=== PATIENT | female | born 1970 | race Caucasian/White ===

== ENCOUNTER 2020-08-28 10:42 | Outpatient (REF) | payer OTHER, SELFPAY ==
[2020-08-28 11:54] LABS: Estimated Average Glucose 157 mg/dL; Hemoglobin A1c % 7.1 %
[2020-08-28 12:18] LABS: Alanine Aminotransferase 15 U/L (0-31); Albumin Level 3.9 g/dL (3.5-5.0); Alkaline Phosphatase 100 U/L (39-117); Anion Gap 11 (12-20); Aspartate Amino Transferase 17 U/L (5-31); Bilirubin Total 0.5 mg/dL (0.0-1.0); Blood Urea Nitrogen 14 mg/dL (9-16); Carbon Dioxide 28 mmol/L (22-29); Chloride 104 mmol/L (96-108); Cholesterol 230 mg/dL; Estimated Glomerular Filt Rate > 60; Glucose Fasting 135 mg/dL (60-99); HDL Cholesterol 56 mg/dL; LDL Cholesterol Calculated 141 mg/dl; Potassium 4.2 mmol/l (3.3-5.1); Sodium 139 mmol/L (135-145); Total Protein 6.6 g/dL (6.5-8.0); Triglycerides 166 mg/dL
[2020-08-28 12:37] LABS: TSH reflex Free T4 1.28 mIU/mL (0.32-4.0)
[2020-08-28 12:41] LABS: Rheumatoid Factor < 15.0 IU/mL (<15.0)
== END 2020-08-28 10:43 | disposition home or self-care (01) ==
LOC: HO.LAB 10:42
PROVIDERS: PCP Internal Medicine; Visit Provider Nurse Practitioner Family
DX: Z20.828 Contact with and (suspected) exposure to other viral communicable diseases (principal)
CPT/HCPCS: 80053; 80061; 83036; 84443; 86431; U0003

== ENCOUNTER 2020-10-23 10:11 | Outpatient (REF) | payer OTHER, SELFPAY ==
--- NOTE | ~2020-10-23 | XR_ITS ---
EXAMINATION: BILATERAL KNEES STANDING. LEFT KNEE 2 VIEWS. CLINICAL INFORMATION: Bilateral knee pain. COMPARISON: None TECHNIQUE: AP bilateral knees standing. Left knee 2 views. FINDINGS: AP bilateral knee: There is mild loss of medial and lateral compartment joint space both knees without visible acute fracture, loose bodies or bony erosive changes. The soft tissues are normal. Left knee: There is mild loss of patellofemoral compartment joint space without bony erosive changes. No visible acute fracture or dislocation seen. No soft tissue swelling. XR/XR knee LT 2V IMPRESSION: Mild early degenerative changes tricompartment left knee medial and lateral compartment right knee. No loose bodies or bony erosive changes seen in either knee joints. No abnormal joint effusion left knee.
--- NOTE | ~2020-10-23 | XR_ITS ---
EXAMINATION: BILATERAL KNEES STANDING. LEFT KNEE 2 VIEWS. CLINICAL INFORMATION: Bilateral knee pain. COMPARISON: None TECHNIQUE: AP bilateral knees standing. Left knee 2 views. FINDINGS: AP bilateral knee: There is mild loss of medial and lateral compartment joint space both knees without visible acute fracture, loose bodies or bony erosive changes. The soft tissues are normal. Left knee: There is mild loss of patellofemoral compartment joint space without bony erosive changes. No visible acute fracture or dislocation seen. No soft tissue swelling. XR/XR knee standing BI IMPRESSION: Mild early degenerative changes tricompartment left knee medial and lateral compartment right knee. No loose bodies or bony erosive changes seen in either knee joints. No abnormal joint effusion left knee.
== END 2020-10-23 10:12 | disposition home or self-care (01) ==
LOC: HO.HOSX 10:11
PROVIDERS: Visit Provider Orthopaedic Surgery
DX: M25.561 Pain in right knee (principal); M25.562 Pain in left knee
CPT/HCPCS: 73560; 73565

== ENCOUNTER → 2020-10-24 13:25 | Outpatient (BNVA) | payer OTHER, SELFPAY | PROVIDERS: Visit Provider Orthopaedic Surgery | DX: M25.562 Pain in left knee (principal); M25.561 Pain in right knee ==

== ENCOUNTER 2020-11-05 12:41 | Outpatient (REF) | payer OTHER, SELFPAY ==
--- NOTE | ~2020-11-05 | MR_ITS ---
EXAMINATION: MR KNEE WITHOUT CONTRAST, LEFT CLINICAL INFORMATION: Knee pain. Evaluate medial meniscus. Patient reports pain, weakness. COMPARISON: X-ray 10/24/2020 TECHNIQUE: MRI of the knee without contrast was performed using routine sequences on a high-field scanner. FINDINGS: MENISCI: Medial Meniscus: Intact. Lateral Meniscus: Questionable subtle fraying of the posterior root, with artifact on the sagittal sequence limiting evaluation. Otherwise intact. LIGAMENTS: Cruciate: Intact Collateral: Intact EXTENSOR MECHANISM: Intact. There is edema in the superolateral Hoffa's fat pad which can be seen with patellar tendon-lateral femoral condyle impingement. ARTICULAR CARTILAGE/BONE: No focal cartilage loss in 3 compartments. No suspicious marrow signal changes. No fracture. JOINT FLUID AND BURSAE: No significant joint effusion or Encinas's cyst. Popliteus muscle and tendon are intact. Pes anserine tendons appear unremarkable. MR/MR knee LT wo con IMPRESSION: 1. Limited evaluation of the posterior root of the lateral meniscus due to artifact, with subtle fraying difficult to exclude. The menisci otherwise appear intact without evidence of discrete tear. 2. Edema in the superolateral Hoffa's fat pad can be seen with patellar tendon-lateral femoral condyle impingement. 3. No acute osseous abnormality.
== END 2020-11-05 12:42 | disposition home or self-care (01) ==
LOC: HO.MRI 12:41
PROVIDERS: Visit Provider Orthopaedic Surgery
DX: M23.92 Unspecified internal derangement of left knee (principal); S83.242A Other tear of medial meniscus, current injury, left knee, initial encounter
CPT/HCPCS: 73721

== ENCOUNTER → 2020-12-14 10:18 | Outpatient (BNVA) | payer OTHER, SELFPAY | PROVIDERS: PCP Internal Medicine; Visit Provider Orthopaedic Surgery ==

== ENCOUNTER 2022-09-17 12:16 | Outpatient (REF) | payer OTHER, SELFPAY ==
[2022-09-17 13:49] LABS: Alanine Aminotransferase 15 U/L (0-31); Albumin Level 4.1 g/dL (3.5-5.0); Alkaline Phosphatase 132 U/L (39-117); Anion Gap 10 (12-20); Aspartate Amino Transferase 17 U/L (5-31); Bilirubin Total 0.5 mg/dL (0.0-1.0); Blood Urea Nitrogen 14 mg/dL (9-16); Calcium 9.7 mg/dL (8.4-10.2); Carbon Dioxide 30 mmol/L (22-29); Chloride 104 mmol/L (96-108); Cholesterol 236 mg/dL; Estimated Glomerular Filt Rate > 60; Glucose Fasting 130 mg/dL (60-99); HDL Cholesterol 58 mg/dL; LDL Cholesterol Calculated 154 mg/dl; Potassium 4.4 mmol/L (3.3-5.1); Sodium 140 mmol/L (135-145); Total Protein 6.7 g/dL (6.5-8.0); Triglycerides 120 mg/dL; Uric Acid 5.9 mg/dL (2.4-5.7)
[2022-09-17 14:04] LABS: Vitamin D 25-OH Total 33.2 ng/mL (>30)
[2022-09-17 14:23] LABS: Creatinine Urine 168.85 mg/dL
== END 2022-09-17 12:17 | disposition home or self-care (01) ==
LOC: HO.LAB 12:16
PROVIDERS: PCP Internal Medicine; Visit Provider Internal Medicine
DX: E11.65 Type 2 diabetes mellitus with hyperglycemia (principal); M10.9 Gout, unspecified; E55.9 Vitamin D deficiency, unspecified; E78.5 Hyperlipidemia, unspecified
CPT/HCPCS: 36415; 80053; 80061; 82043; 82306; 84550

== ENCOUNTER 2023-03-25 15:29 | Outpatient (AMB) | payer OTHER, SELFPAY ==
--- NOTE | 2023-03-25 15:30 | A.OFFPC_ITS ---
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 Required: No Accompanied by: Self / Same As Patient Allergies nabumetone Allergy (Unknown, Verified 03/25/23 16:08) inadequate response tramadol Allergy (Unknown, Verified 03/25/23 16:08) headache metformin Adverse Reaction (Intermediate, Uncoded 03/25/23 16:16) abdominal discomfort, diarrhea Medication List - Last Reconciled 03/25/23 by Brandi Baltazar MD bisacodyl (Dulcolax (bisacodyl)) 10 mg (2 x 5 mg) PO ONCE 1 day pioglitazone 45 mg PO DAILY 90 days polyethylene glycol 3350 (Miralax) 238 grams PO ONCE Tobacco use date assessed: 03/25/23 Dental Screening Dental Screen Date: 03/25/23 Did you have a dental visit in the last 12 months?: Yes Did you have a dental problem in the last 6 months where you did not have access to dental care?: No Was dental information given to patient?: Patient has dentist HPI HPI Comments History of Present Illness Details This is a 52-year-old female with diabetes mellitus type 2, chronic GERD, thyroid nodule and morbid obesity that comes today for follow-up on her conditions. A1c not on goal and I will add Trulicity. She is morbidly obese with a BMI of 40.9 and was advised to diet and exercise. Has had chronic GERD for over 5 years that is still present even though she takes omeprazole. I will start her on pantoprazole and refer her to Gastroenterology. Has a thyroid nodule and last ultrasound was over a year ago. Complains of chest pain located in the middle of the chest and associated to left arm numbness and an EKG will be ordered. The chest pain is burning like in quality. [facility] Medical History (Updated 03/25/23 @ 17:03 by Brandi Baltazar MD) Arthritis Back pain Diabetes mellitus Dyslipidemia Encounter for screening laboratory testing for COVID-19 virus Essential hypertension Physical exam Surgical History History of foot surgery History of surgery Previous section Family History Father No problems noted. Mother Diabetes Hypertension Maternal Grandmother Diabetes Social History Housing: House Alcohol intake: current Alcohol intake frequency: a few times a month Alcohol type: beer, wine and hard liquor Patient Tobacco Use Status: Never used Tobacco e-Cigarette/Vaping Use: Never Used Second Hand Smoke Exposure: No service: No Current occupational status: employed Current occupation: Work at home - right Handed Current occupational exposures/hazards: No Cognitive needs: No Hearing needs: No Vision needs: Yes Questionnaire PHQ-9 Over the last 2 weeks, how often have you been bothered by any of the following problems? 1. Little interest or pleasure in doing things: not at all 2. Feeling down, depressed, or hopeless: not at all 3. Trouble falling or staying asleep, or sleeping too much: not at all 4. Feeling tired or having little energy: not at all 5. Poor appetite or overeating: not at all 6. Feeling bad about yourself - or that you are a failure or have let yourself or your family down: not at all 7. Trouble concentrating on things, such as reading the newspaper or watching television: not at all 8. Moving or speaking so slowly that other people could have noticed. Or the opposite - being so fidgety or restless that you have been moving around a lot more than usual: not at all 9. Thoughts that you would be better off or of hurting yourself in some way: not at all Total score: 0 Depression Screening Interpretation: Negative 11745 - PHQ-9 Billing: Yes Source: Developed by Drs. Trace Vazquez, Teetee Holland, Blas Pineda and colleagues, with an educational zackary from [employer]. Thrive Questionnaire Date Thrive assessed: 03/25/23 I am a: Patient What is your living situation today?: I have a steady place to live Within the past 12 months, did the food you bought not last and you didn't have the money to get more?: Never true Within the past 12 months, did you worry whether your food would run out before you got money to buy more?: Never true Do you have trouble paying for medicines?: No Do you have trouble getting transportation to medical appointments?: No Do you have trouble paying your heating and electricity bill?: No Do you have trouble taking care of your child, family member or friend?: No Do you have trouble with day-to-day activities such as bathing, preparing meals, shopping, managing finances, etc.?: No Are you currently unemployed and looking for a job?: No Are you interested in more education?: No Please select the resources that you would like help with: None Currently or been in a relationship where the following occur: no concerns reported AUDIT C Alcohol Use Questionnaire (AUDIT-C) 1. How often do you have a drink containing alcohol?: 2-4 times a month 2. How many drinks containing alcohol do you have on a typical day when you are drinking?: 1 or 2 3. How often do you have six or more drinks on one occasion?: Never Total Score: 2 Score Reviewed/Action Taken: No KATE-7 AMB Questionnaire KATE-7 Date KATE - 7 assessed: 03/25/23 Feeling nervous, anxious, or on edge: 0 = Not at all Not being able to stop or control worryin = Not at all Worrying too much about different things: 0 = Not at all Trouble relaxin = Not at all Being so restless that it is hard to sit still: 0 = Not at all Becoming easily annoyed or irritable: 0 = Not at all Feeling afraid as if something awful might happen: 0 = Not at all Total KATE-7 score (0-4 normal; 5-9 mild; 10-14 moderate; 15-21 severe): 0 Source: Developed by Drs. Trace Vazquez, Teetee Holland, Blas Pineda and colleagues, with an educational zackary from [employer]. KATE-7 Assessment Billing KATE-7 Assessment Tool: KATE-7 Assessment 69081 Review of Systems Const All systems reviewed & are unremarkable except as noted in HPI and below Eyes Reports no additional complaints, Denies change in vision and Denies other visual disturbances Card Denies chest pain at rest, Denies chest pain with activity, Denies edema, Denies irregular heart rhythm, Denies claudication, Denies dyspnea, Denies dyspnea on exertion, Denies orthopnea, Denies paroxysmal nocturnal dyspnea and Denies slow heart rate Resp Denies cough, Denies dyspnea and Denies dyspnea on exertion GI Denies abdominal pain, Denies change in bowel habits, Denies excessive flatus, Denies nausea and Denies vomiting Denies urinary incontinence, Denies urinary hesitancy and Denies urinary urgency Musc Denies abnormal gait, Denies atrophy, Denies deformity and Denies limited range of motion Skin/Breast Denies bleeding lesions, Denies changing lesions and Denies rash Neuro Denies abnormal gait and Denies lack of coordination Physical exam (Primary Care) Vital Signs: Last Vital Signs BP 136/86 03/25/23 15:33 BMI result Body Mass Index 40.8 Tobacco/Smoking Status: Tobacco use Status Tobacco use date assessed 03/25/23 03/25/23 15:42 Patient Tobacco Use Status Never used Tobacco 03/25/23 15:32 e-Cigarette/Vaping Use Never Used 03/25/23 15:32 PHQ-9: PHQ-9 Score PHQ-9: Total score 0 03/25/23 16:10 Depression Screening Interpretation: Negative Thrive Assessment: Date of Thrive Assessment Date Thrive assessed 03/25/23 03/25/23 15:42 Currently or been in a relationship where the following occur: no concerns reported Eyes General: appearance normal, both eyes and all related structures Eyelids: Yes eyelids normal Conjunctivae: conjunctivae normal Neck Neck: Yes normal visual inspection and Yes supple Resp Effort & Inspection: normal respiratory effort Auscultation: clear to auscultation bilaterally Cardio Jugular venous distension: no JVD Rate: regular rate Rhythm: regular rhythm Heart sounds: S1 normal heart sound present and S2 normal heart sound present Extrem General: Yes full ROM Results AMB Hemoglobin A1c AMB Hemoglobin A1c 7.5 % Last Edit by KRISTEN Burnham on 03/25/23 15:5 5 Results Reviewed Results Reviewed: Laboratory Last Values Hgb A1c (Clinic) 7.5 % (4.0-6.0) H 03/25/23 15:54 Assessment and Plan Assessment & Plan (1) Thyroid nodule: Code(s): E04.1 - Nontoxic single thyroid nodule Plan: Ultrasound thyroid ordered (2) Chronic GERD: Code(s): K21.9 - Gastro-esophageal reflux disease without esophagitis Plan: Referred to Gastroenterology. Discontinue omeprazole. Start pantoprazole. 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 Start Trulicity once a week. A1c goal is equal or less than 7%. (4) Morbid obesity with BMI of 40.0-44.9, adult: Code(s): E66.01 - Morbid (severe) obesity due to excess calories; Z68.41 - Body mass index [BMI] 40.0-44.9, adult Plan: Start diet and exercise. BMI goal is less than 30. Orders: Orders US thyroid Today E04.1 - Nontoxic single thyroid nodule ECG 12 lead EKG Today R07.9 - Chest pain, unspecified AMB Hemoglobin A1c Today E11.9 - Type 2 diabetes mellitus without complications Referrals Gastroenterology Referral K21.9 - Gastro-esophageal reflux disease without esophagitis Medications: New dulaglutide (Trulicity) 0.75 mg (0.5 mL) subcut QWEEK 90 days 6.5 mL 1RF E11.9 - Type 2 diabetes mellitus without complications pantoprazole 40 mg PO DAILY 90 days 90 tabs 0RF Coding Level of Care Code Est Pt Level 4 (56055) Diagnoses Thyroid nodule E04.1 Chronic GERD K21.9 Diabetes mellitus E11.65 Diabetes mellitus type: type 2 Diabetes mellitus group home insulin use: without group home use Diabetes mellitus complication status: with hyperglycemia Morbid obesity with BMI of 40.0-44.9, adult E66.01; Z68.41 Additional Codes KATE-7 Assessment Billing - KATE-7 Assessment Tool: KATE-7 Assessment 41801 ([id number]) Time Spent (min) 22
[2023-03-25 15:33] VITALS: BP 136/86; BMI 40.8
== END 2023-03-25 16:25 | disposition home or self-care (01) ==
PROVIDERS: Visit Provider Internal Medicine
DX: E04.1 Nontoxic single thyroid nodule (principal); Z68.41 Body mass index [BMI] 40.0-44.9, adult; E66.01 Morbid (severe) obesity due to excess calories; E11.65 Type 2 diabetes mellitus with hyperglycemia; K21.9 Gastro-esophageal reflux disease without esophagitis
CPT/HCPCS: 83036; 99214

== ENCOUNTER 2023-04-06 10:25 | Outpatient (REF) | payer OTHER, SELFPAY ==
--- NOTE | 2023-04-06 10:34 | ECG_ITS ---
Test Reason : CP Blood Pressure : / mmHG Vent. Rate : 068 BPM Atrial Rate : 068 BPM P-R Int : 162 ms QRS Dur : 096 ms QT Int : 440 ms P-R-T Axes : 046 -15 046 degrees QTc Int : 467 ms Normal sinus rhythm Minimal voltage criteria for LVH, may be normal variant ( [place] product ) Borderline ECG No previous ECGs available Referred By: Brandi Baltazar Electronically Signed By:CHARLEEN DASH MD
[2023-04-06 12:34] LABS: Creatinine Urine 162.34 mg/dL; Microalbum/Creatinine Ratio Ur 7.3 ug/mg cr
[2023-04-06 12:41] LABS: Alanine Aminotransferase 24 U/L (0-31); Alkaline Phosphatase 126 U/L (39-117); Anion Gap 10 (12-20); Aspartate Amino Transferase 21 U/L (5-31); Bilirubin Total 0.5 mg/dL (0.0-1.0); Blood Urea Nitrogen 14 mg/dL (9-16); Calcium 9.6 mg/dL (8.4-10.2); Carbon Dioxide 30 mmol/L (22-29); Chloride 106 mmol/L (96-108); Cholesterol 226 mg/dL; Estimated Glomerular Filt Rate > 60; Glucose Fasting 153 mg/dL (60-99); HDL Cholesterol 56 mg/dL; LDL Cholesterol Calculated 145 mg/dl; Sodium 142 mmol/L (135-145); Total Protein 6.8 g/dL (6.5-8.0); Triglycerides 127 mg/dL
== END 2023-04-06 10:26 | disposition home or self-care (01) ==
LOC: HO.LAB 10:25
PROVIDERS: PCP Internal Medicine; Visit Provider Internal Medicine
DX: Z00.00 Encounter for general adult medical examination without abnormal findings (principal); R07.9 Chest pain, unspecified; E11.65 Type 2 diabetes mellitus with hyperglycemia; E78.5 Hyperlipidemia, unspecified
CPT/HCPCS: 36415; 80053; 80061; 82043; 93005

== ENCOUNTER → 2023-04-06 10:34 | Outpatient (BNV) | payer OTHER, SELFPAY | PROVIDERS: PCP Internal Medicine; Visit Provider Internal Medicine Cardiovascular Disease | DX: R07.9 Chest pain, unspecified (principal); R94.31 Abnormal electrocardiogram [ECG] [EKG] | CPT/HCPCS: 93010 ==

== ENCOUNTER 2023-04-13 07:07 | Day surgery (SDC) | payer OTHER, SELFPAY ==
[2023-04-08 14:48] VITALS: BMI 40.8
--- NOTE | 2023-04-10 10:33 | HO.ANESPROP2 ---
Documented by User: Kylah Fenton NP 04/10/23 10:33 HPI - Anesthesia Eval Consult details Narrative: 52yo F for Colonoscopy PMFSH Active Problems Active Problems: All Active Problems (Updated 04/08/23 @ 14:38 by Toña Adkins, YORDAN) Encounter for screening laboratory testing for COVID-19 virus (Acute) Knee pain, left anterior (Acute) Physical exam (Acute) Class 2 obesity with body mass index (BMI) of 38.0 to 38.9 in adult (Acute) Foot pain (Acute) Hyperlipidemia LDL goal <70 (Acute) Thyroid nodule (Acute) Chest pain (Acute) Chronic GERD (Acute) Morbid obesity with BMI of 40.0-44.9, adult (Acute) Back pain (Acute) Dyslipidemia (Acute) Essential hypertension (Acute) Diabetes mellitus (Acute) Arthritis (Acute) Physical exam (Acute) Past Medical History Medical History Arthritis Back pain Diabetes mellitus Dyslipidemia Essential hypertension Physical exam Family History Family History Father No problems noted. Mother Diabetes Hypertension Maternal Grandmother Diabetes Surgical History Surgical History History of foot surgery History of surgery Previous section Social History Social History Housing: House Alcohol intake: current Alcohol intake frequency: a few times a month Alcohol type: beer, wine and hard liquor Patient Tobacco Use Status: Never used Tobacco e-Cigarette/Vaping Use: Never Used Second Hand Smoke Exposure: No Are you DNR?: No Advance Directives: No Advance Directives Information Provided: Yes Nutrition Risks: No Nutritional Risk service: No Current occupational status: employed Current occupation: Work at home - right Handed Current occupational exposures/hazards: No Cognitive needs: No Hearing needs: No Vision needs: Yes Meds Allergies Allergy/AdvReac Type Severity Reaction Status Date / Time nabumetone Allergy Intermediate inadequate Verified 04/13/23 07:12 response tramadol Allergy Intermediate headache Verified 04/13/23 07:12 metformin AdvReac Intermediate Gastrointestinal Verified 04/13/23 07:12 Upset/diarrhea Exam Exam Date and Time: April 10, 2023 1033 Height,Weight and Vital Signs: Height 5 ft 4 in Weight 107.955 kg Pertinent Lab Results Pertinent Lab Results: Laboratory Tests 04/06/23 10:48 Sodium 142 Potassium 4.0 Chloride 106 Carbon Dioxide 30 H BUN 14 Creatinine 0.76 Assessment and Plan Assessment Anesthesia Assessment: Chart Reviewed Documented by User: Cierra Ugalde MD 04/13/23 08:24 PMFSH Past Medical History Medical History Arthritis Back pain Diabetes mellitus Dyslipidemia Essential hypertension Physical exam Family History Family History Father No problems noted. Mother Diabetes Hypertension Maternal Grandmother Diabetes Family history of problems with anesthesia: No Surgical History Surgical History History of foot surgery History of surgery Previous section History of Problems with Anesthesia: No Social History Social History Housing: House Alcohol intake: current Alcohol intake frequency: a few times a month Alcohol type: beer, wine and hard liquor Patient Tobacco Use Status: Never used Tobacco e-Cigarette/Vaping Use: Never Used Second Hand Smoke Exposure: No Are you DNR?: No Advance Directives: No Advance Directives Information Provided: Yes Nutrition Risks: No Nutritional Risk service: No Current occupational status: employed Current occupation: Work at home - right Handed Current occupational exposures/hazards: No Cognitive needs: No Hearing needs: No Vision needs: Yes Meds Allergies Allergy/AdvReac Type Severity Reaction Status Date / Time nabumetone Allergy Intermediate inadequate Verified 04/13/23 07:12 response tramadol Allergy Intermediate headache Verified 04/13/23 07:12 metformin AdvReac Intermediate Gastrointestinal Verified 04/13/23 07:12 Upset/diarrhea Exam Airway Mallampati Class: II TM Dist: >3cm Neck ROM: Full Heart: rrr Lungs: cta Assessment and Plan Assessment Anesthesia Assessment: Anesthesia Plan Discussed Final Anesthetic Review Family History of Problems with Anesthesia: No History of Problems with Anesthesia: No NPO: Yes ASA Class: III Final Preanesthetic Review: No Changes in Pt Med Stat, Meds/Allgs Chart Reviewed, Consent Obtained/Reviewed and Anes Risks/Benef Reviewed Patient Risk: Low Procedure Risk: Low Anesthetic Plan Anesthetic Plan: MAC: Disposition: Standard PACU
[2023-04-13] MEDS: Lactated Ringers 1,000 ML 100 ML IVCONT (07:11)
[2023-04-13 07:40] VITALS: BP 166/92; PULSE 83; RESP 18; TEMP 36.6; O2SAT 97
[2023-04-13 07:46] LABS: Glucose, Whole Blood 157 mg/dL (60-115)
--- NOTE | 2023-04-13 08:02 | MHC.SHP ---
Pre-Procedural Eval Section A Date of Service: 04/13/23 The patient is an INPATIENT: No The History & Physical has been completed within 30 days and I have reviewed it.: No Section B Chief Complaint: screening Relevant Family History (Specify if Yes): No Relevant Social History: None Present Medications: see Short Stay Collaborative assessment Medical History: Significant History (Arthritis Back pain Diabetes mellitus Dyslipidemia Encounter for screening laboratory testing for COVID-19 virus Essential hypertension) History of Previous Operations: Relevant previous surgery/procedure and date(s) (History of , history of foot surgery) Allergies: Allergies Allergy/AdvReac Type Severity Reaction Status Date / Time nabumetone Allergy Intermediate inadequate Verified 04/13/23 07:12 response tramadol Allergy Intermediate headache Verified 04/13/23 07:12 metformin AdvReac Intermediate Gastrointestinal Verified 04/13/23 07:12 Upset/diarrhea Review of Systems Sugical H&P ROS: Negative: Constitution, Cardiovascular, Respiratory and Gastrointestinal Exam Surgical H&P Exam: Normal: Heart, Normal: Lungs, Normal: Extremities and Normal: Abdomen Plan Diagnosis/Plan: Unchanged I have reviewed the history and physical and performed a pertinent physical examination on my patient. No changes have occurred unless specified. Time Spent With Patient Time: Total time managing care of this patient today ____ minutes.
--- NOTE | 2023-04-13 08:26 | P.OP_ITS ---
Operative Note Operative Note Date of Service: 04/13/23 Narrative: COLONOSCOPY TILL CECUM Pre-op diagnosis: Colon cancer screening Post-op diagnosis:? Diverticulosis Endoscopist:? Arcelia Sorto MD Anesthesia:?MAC Consent: Indications for the procedure and potential complications of bleeding, perforation, reaction to medications and missed diagnosis were discussed with the patient and informed consent was obtained. Instrument: Olympus PCF H 190 L variable stiffness pediatric colonoscope Monitoring: Vital signs and clinical assessment, intermittent blood pressure monitoring, continuous EKG monitoring, Pulse oximetry and Carbon Dioxide monitoring were done throughout the procedure. Please see anesthesia flowsheet. Colon withdrawl time was 13 minutes. Procedure: The patient was placed in the left lateral decubitis position and pre-procedure medications were administered. After a digital rectal examination of the ano-rectum, the video colonoscope was inserted into the rectum and advanced through the colon to the cecum. The colonoscope was slowly withdrawn in a retrograde panoramic fashion and the colon mucosa was carefully examined including a retroflexed view of the rectum. Findings and interventions are described below. Procedure Difficulty: Without difficulty Findings: Terminal Ileum: Not evaluated Cecum: Normal Ascending Colon: Normal Transverse Colon: Normal Descending Colon: Normal Sigmoid Colon: Moderate diverticulosis Rectum: Normal Ano-rectum: Normal Colon preparation: Good Impression and Post Procedure Diagnosis: Colonoscopy Findings: No polyps were detected Moderate diverticulosis seen in the sigmoid colon Plan: Patient has an appointment on 04/27/23 in the GI Clinic with Maria Luz Kessler FNP- [facility]. Repeat Colonoscopy in 10 years. Above findings were reviewed with the patient and diverticulosis handout was given in the discharge area
[2023-04-13 09:10] VITALS: BP 121/81; PULSE 84; RESP 17; TEMP 36.1; O2SAT 98
[2023-04-13 09:25] VITALS: BP 116/90; PULSE 73; RESP 16; TEMP 36.1; O2SAT 95
== END 2023-04-13 09:51 | disposition home or self-care (01) ==
PROVIDERS: PCP Internal Medicine; Visit Provider Internal Medicine Gastroenterology
PROC: 0DJD8ZZ Inspection of Lower Intestinal Tract, Via Natural or Artificial Opening Endoscopic (ICD-10-PCS; CPT 45378; principal; 2023-04-13 08:30)
DX: Z12.11 Encounter for screening for malignant neoplasm of colon (principal); K57.30 Diverticulosis of large intestine without perforation or abscess without bleeding; E11.9 Type 2 diabetes mellitus without complications; I10 Essential (primary) hypertension; E78.5 Hyperlipidemia, unspecified; K21.9 Gastro-esophageal reflux disease without esophagitis; E66.9 Obesity, unspecified; Z68.34 Body mass index [BMI] 34.0-34.9, adult
CPT/HCPCS: 45378; 82947; J2250

== ENCOUNTER → 2023-04-13 07:07 | Outpatient (BNV) | payer OTHER, SELFPAY | PROVIDERS: PCP Internal Medicine; Visit Provider Internal Medicine Gastroenterology | DX: Z12.11 Encounter for screening for malignant neoplasm of colon (principal); K57.30 Diverticulosis of large intestine without perforation or abscess without bleeding | CPT/HCPCS: 45378 ==

== ENCOUNTER 2023-04-14 14:08 | Outpatient (REF) | payer OTHER, SELFPAY ==
--- NOTE | ~2023-04-14 | US_ITS ---
EXAMINATION: US THYROID CLINICAL INFORMATION: Nontoxic single thyroid nodule. COMPARISON: Ultrasound thyroid 04/20/2019 and 04/01/2018. TECHNIQUE: Linear transducer grayscale and color Doppler examination with attention to the region of the thyroid. FINDINGS: SIZE: Measurements of the thyroid lobes and nodules are given in sagittal, anteroposterior and transverse dimensions respectively. Right Thyroid Lobe: 5.2 x 1.4 x 1.8 cm, volume 6.8 mL. Previously 5.2 x 1.2 x 1.7 cm, volume 5.7 mL. Parenchyma: The gland echotexture is homogeneous. Thyroid vascularity is normal. Left Thyroid Lobe: 5.4 x 1.3 x 1.7 cm, volume 5.9 mL. Previously 5.5 x 1.4 x 1.7 cm, volume 6.9 mL. Parenchyma: The gland echotexture is homogeneous. Thyroid vascularity is normal. Isthmus: 0.4 cm in maximum AP dimension. Previously 0.4 cm. Estimated total number of nodules greater than or equal to 1 cm: 1. [employer] nodules are described as follows: 1. Location: Left inferior. Size: 1.8 x 1.1 x 1.7 cm, volume 1.7 mL. Previously: 2.0 x 1.1 x 1.6 cm, volume 1.8 mL. This measured 1.7 x by 1.2 x 1.2 cm in 2018. Nodule characteristics: Composition: Solid (2). Echogenicity: Isoechoic (1). Shape: Not taller than wide (0). Margins: Smooth (0). Echogenic Foci: None (0). ACR TI-RADS total points: 3 ACR TI-RADS category: 3 Significant change in size (>/= 20% in 2 dimensions and minimal increase of 2 mm or 50% or greater increase in volume): No Change in features: No Change in ACR TI-RADS risk category: No 2. Location: Right mid. Size: 0.9 x 0.5 x 0.8 cm, volume 0.2 mL. Previously: Not measured on the previous study. Nodule characteristics: Composition: Solid/almost completely solid (2). Echogenicity: Hypoechoic (2). Shape: Not taller than wide (0). Margins: Ill-defined (0). Echogenic Foci: Punctate echogenic foci (3). ACR TI-RADS total points: 7 ACR TI-RADS category: 5 3. Location: Right mid. Size: 0.8 x 0.5 x 0.6 cm, volume 0.1 mL. Previously: Not measured on the previous study. : Composition: Solid/almost completely solid (2). Echogenicity: Hypoechoic (2). Shape: Not taller than wide (0). Margins: Ill-defined (0). Echogenic Foci: Punctate echogenic foci (3). ACR TI-RADS total points: 7 ACR TI-RADS category: 5 4. Location: Right inferior. Size: 0.8 x 0.4 x 0.6 cm, volume 0.09 mL. Previously: 0.6 x 0.3 x 0.5 cm, volume 0.05 mL. Nodule characteristics: Composition: Solid/almost completely solid (2). Echogenicity: Isoechoic (1). Shape: Not taller than wide (0). Margins: Ill-defined (0). Echogenic Foci: None (0). ACR TI-RADS total points: 3 ACR TI-RADS category: 3 Significant change in size (>/= 20% in 2 dimensions and minimal increase of 2 mm or 50% or greater increase in volume): No Change in features: No Change in ACR TI-RADS risk category: No NODES: No lymphadenopathy is seen in the tissue surrounding the thyroid gland. US/US thyroid IMPRESSION: 2 new subcentimeter TR 5 right thyroid nodules measuring up to 0.9 cm for which annual follow-up ultrasound is recommended for 5 years. A 1.8 cm TR 3 left inferior thyroid nodule not significantly changed from 2018. No further follow-up recommended. A 0.8 cm TR 3 right thyroid nodule does not meet criteria for follow-up.. ACR TI-RADS RECOMMENDATION REFERENCE: Ultrasound-guided fine-needle aspiration, follow up ultrasound, no further followup. * TR1 (0 point) and TR2 (2 points): No FNA or followup * TR3 (3 points): FNA if more than or equal to 2.5 cm in maximum dimension, follow up ultrasound in 1, 3 and 5 years if 1.5 to 2.4 cm in maximum dimension. * TR4 (4-6 points): FNA if more than or equal to 1.5 cm in maximum dimension, follow up ultrasound in 1, 2, 3 and 5 years if 1 to 1.4 cm in maximum dimension. * TR5 (more than or equal to 7 points): FNA if more than or equal to 1 cm in maximum dimension, follow up ultrasound every year for 5 years if 0.5 to 0.9 cm in maximum dimension. * TR3, TR4 or TR5 nodules that are below the size threshold for follow up receive no followup.
== END 2023-04-14 14:09 | disposition home or self-care (01) ==
LOC: HO.US 14:08
PROVIDERS: PCP Internal Medicine; Visit Provider Internal Medicine
DX: E04.2 Nontoxic multinodular goiter (principal)
CPT/HCPCS: 76536

== ENCOUNTER 2023-12-22 15:09 | Emergency (ER) | payer OTHER, SELFPAY ==
--- NOTE | ~2023-12-22 | XR_ITS ---
EXAMINATION: XR chest 2V CLINICAL INFORMATION: Cough COMPARISON: 2019 TECHNIQUE: XR chest 2V, 2 Views Lungs and Soumya: Both lungs are clear. Pleura: Normal. Costophrenic angles are sharp. No pneumothorax. Heart: The heart is normal in size. Mediastinum: The mediastinum is within normal limits.. Bones: Skeletal structures included are normal for patient's age. XR/XR chest 2V IMPRESSION: No radiographic evidence of acute cardiopulmonary disease.
--- NOTE | 2023-12-22 15:11 | ECG_ITS ---
Test Reason : CP Blood Pressure : / mmHG Vent. Rate : 103 BPM Atrial Rate : 103 BPM P-R Int : 156 ms QRS Dur : 088 ms QT Int : 376 ms P-R-T Axes : 018 -26 059 degrees QTc Int : 492 ms Sinus tachycardia Possible Left atrial enlargement Borderline ECG When compared with ECG of 06-APR-2023 10:33, Vent. rate has increased BY 35 BPM Referred By: Florence Villasenor Electronically Signed By:CHARLEEN DASH MD
[2023-12-22 15:55] VITALS: BP 152/86; PULSE 93; RESP 16; TEMP 36.6; O2SAT 97; BMI 40.6
--- NOTE | 2023-12-22 15:55 | ED.CHESTPAIN ---
HPI - Chest Pain General Chief Complaint: General Medical Stated Complaint: chest pain, back pain, nausea Related Data Previous Rx's ?Medication ?Instructions ?Recorded pantoprazole 40 mg tablet,delayed 40 mg PO DAILY 90 days #90 tabs 03/25/23 release rosuvastatin 10 mg tablet 10 mg PO BEDTIME 90 days #90 tabs 04/06/23 sitagliptin phosphate 25 mg tablet 25 mg PO DAILY 90 days #90 tabs 04/13/23 (Januvia) blood sugar diagnostic (FreeStyle #100 ea 06/01/23 Lite Strips) lancets 28 gauge (FreeStyle #100 ea 06/01/23 Lancets) pioglitazone 45 mg tablet 45 mg PO DAILY 90 days #90 tabs 09/23/23 Allergies Allergy/AdvReac Type Severity Reaction Status Date / Time nabumetone Allergy Intermediate Unknown Verified 12/22/23 15:59 tramadol Allergy Intermediate headache Verified 12/22/23 15:59 metformin AdvReac Intermediate Gastrointestinal Verified 12/22/23 15:59 Upset/diarrhea PMFSH Past Medical History Medical History (Updated 12/23/23 @ 14:44 by ADITI Hubbard) Back pain Dyslipidemia Essential hypertension Diabetes mellitus Arthritis Physical exam Surgical History Previous section History of surgery History of foot surgery Family History Family History Father No problems noted. Mother Diabetes Hypertension Maternal Grandmother Diabetes Social History Social History Housing: House Alcohol intake: current Alcohol intake frequency: a few times a month Alcohol type: beer, wine and hard liquor Patient Tobacco Use Status: Never used Tobacco e-Cigarette/Vaping Use: Never Used Second Hand Smoke Exposure: No Advance Directives: No Advance Directives Information Provided: No service: No Current occupational status: employed Current occupation: Work at home - right Handed Current occupational exposures/hazards: No Cognitive needs: No Hearing needs: No Vision needs: Yes Physical Exam Vital Signs: Vital Signs: Last Vital Signs Temp 98 F 12/22/23 15:55 Pulse 93 12/22/23 15:55 Resp 16 12/22/23 15:55 BP 152/86 H 12/22/23 15:55 Pulse Ox 97 12/22/23 15:55 O2 Del Method Room Air 12/22/23 15:55 BMI result Body Mass Index 40.6 Course Course Course Narrative: RME:?hx of HDL, DM, GERD, arthritis here for eval of dry cough, nausea and chest pain xdays. Denies fever, sputum production, SOB, dyspnea, palpiatations. hypertensive in triage- states she is unaware if any HTN diagnosis although has been told it's been elevated in the past. no bp meds. Lungs CTA b/l. RRR. Labs, EKG, viral serology, chest x-ray ordered. Full HPI, ROS and PE to be performed by the primary ED provider. Reevaluation(s) Reevaluation #1: Patient left the ED without completing treatment. Medical Decision Making Lab Data 12/22/23 16:16 12/22/23 16:16 Labs: Lab Results 12/22/23 Range/Units 16:16 WBC 10.0 (4.8-10.8) X10*3/uL RBC 4.85 (4.20-5.50) X10*6/uL Hgb 14.7 (12.0-16.0) g/dl Hct 43.7 (37.0-47.0) % MCV 90.1 (80.0-98.0) fL MCH 30.3 (27.0-33.0) pg MCHC 33.6 (31.0-35.0) g/dl RDW 12.6 (11.0-16.0) % Plt Count 218 (160-400) X10*3/uL MPV 10.2 (9.4-12.3) fL Immature Gran % (Auto) 0.5 H (0.0-0.4) % Neut % (Auto) 86.8 H (45-73) % Lymph % (Auto) 5.4 L (20-40) % [place] % (Auto) 4.8 (2-11) % Eos % (Auto) 2.3 (0-4) % Baso % (Auto) 0.2 (0-2) % Lymph # (Auto) 0.5 L (1.2-4.9) X10*3/uL [place] # (Auto) 0.5 (0.1-1.2) X10*3/uL Eos # (Auto) 0.2 (0.0-0.4) X10*3/uL Baso # (Auto) 0.0 (0.0-0.2) X10*3/uL Abs Immat Gran (auto) 0.05 H (0.00-0.03) X10*3/uL Absolute Neuts (auto) 8.7 H (2.0-8.3) x10*3/uL Absolute Nucleated RBC 0.000 (0.0-0.012) X10*3/uL Nucleated RBC % (auto) 0.0 (0.0-0.2) /100WBC Sodium 141 (135-145) mmol/L Potassium 3.8 (3.3-5.1) mmol/L Chloride 107 (96-108) mmol/L Carbon Dioxide 25 (22-29) mmol/L Anion Gap 13 (12-20) BUN 16 (9-16) mg/dL Creatinine 0.76 (0.5-1.4) mg/dL Estim Creat Clear Calc 100.0 Estimated GFR > 60 Random Glucose 163 H (60-115) mg/dL Calcium 9.3 (8.4-10.2) mg/dL Magnesium 1.7 (1.6-2.6) mg/dL Total Bilirubin 0.4 (0.0-1.0) mg/dL AST 18 (5-31) U/L ALT 19 (0-31) U/L Alkaline Phosphatase 135 H (39-117) U/L Troponin I High Sens < 2.7 (<3.5-17.0) ng/L Total Protein 7.1 (6.5-8.0) g/dL Albumin 3.9 (3.5-5.0) g/dL Lipase 19 (8-78) U/L Influenza Type A (PCR) NEGATIVE (Negative) Influenza Type B (PCR) NEGATIVE (Negative) RSV RNA Qual (PCR) NEGATIVE (Negative) SARS-CoV-2 RNA (RT-PCR) NEGATIVE (Negative) Discharge Plan Discharge Clinical Impression: Upper respiratory infection Patient Disposition: Left W/O Completing Treatment Prescriptions: No Action rosuvastatin 10 mg tablet 10 mg PO BEDTIME 90 Days Qty: 90 1RF Januvia 25 mg tablet 25 mg PO DAILY 90 Days Qty: 90 1RF (DME) FreeStyle Lite Strips Strip See Rx Instructions .Route Qty: 100 4RF Rx Instructions: test once per day (DME) lancets [FreeStyle Lancets] 28 gauge misc See Rx Instructions .Route Qty: 100 4RF Rx Instructions: test once daily pioglitazone 45 mg tablet 45 mg PO DAILY 90 Days Qty: 90 1RF pantoprazole 40 mg tablet,delayed release (DR/EC) 40 mg PO DAILY 90 Days Qty: 90 0RF Discharge Date/Time: 12/22/23 23:22
[2023-12-22 16:20] LABS: MANUAL DIFF FLAG NO
[2023-12-22 16:23] LABS: Basophils Percent Auto 0.2 % (0-2); Eosinophils Absolute Auto 0.2 X10*3/uL (0.0-0.4); Eosinophils Percent Auto 2.3 % (0-4); Hematocrit 43.7 % (37.0-47.0); Hemoglobin 14.7 g/dl (12.0-16.0); Imm Gran Abs Auto 0.05 X10*3/uL (0.00-0.03); Imm Gran Pct Auto 0.5 % (0.0-0.4); Lymphocytes Absolute Auto 0.5 X10*3/uL (1.2-4.9); Lymphocytes Percent Auto 5.4 % (20-40); Mean Corpuscular HGB Conc 33.6 g/dl (31.0-35.0); Mean Corpuscular Hemoglobin 30.3 pg (27.0-33.0); Mean Corpuscular Volume 90.1 fL (80.0-98.0); Mean Platelet Volume 10.2 fL (9.4-12.3); Monocytes Absolute Auto 0.5 X10*3/uL (0.1-1.2); Monocytes Percent Auto 4.8 % (2-11); Neutrophils Absolute Auto 8.7 x10*3/uL (2.0-8.3); Neutrophils Percent Auto 86.8 % (45-73); Platelet Count 218 X10*3/uL (160-400); Red Blood Count 4.85 X10*6/uL (4.20-5.50); Red Cell Distribution Width 12.6 % (11.0-16.0)
[2023-12-22 16:40] LABS: Alanine Aminotransferase 19 U/L (0-31); Albumin Level 3.9 g/dL (3.5-5.0); Alkaline Phosphatase 135 U/L (39-117); Anion Gap 13 (12-20); Aspartate Amino Transferase 18 U/L (5-31); Bilirubin Total 0.4 mg/dL (0.0-1.0); Blood Urea Nitrogen 16 mg/dL (9-16); Calcium 9.3 mg/dL (8.4-10.2); Carbon Dioxide 25 mmol/L (22-29); Chloride 107 mmol/L (96-108); Estimated Glomerular Filt Rate > 60; Glucose Random 163 mg/dL (60-115); Lipase 19 U/L (8-78); Magnesium 1.7 mg/dL (1.6-2.6); Potassium 3.8 mmol/L (3.3-5.1); Sodium 141 mmol/L (135-145); Total Protein 7.1 g/dL (6.5-8.0)
[2023-12-22 16:48] LABS: Troponin-I High Sensitivity < 2.7 ng/L (<3.5-17.0)
[2023-12-22 17:04] LABS: Influenza A PCR NEGATIVE (Negative); Influenza B PCR NEGATIVE (Negative); Resp Syncy Virus RNA Qual PCR NEGATIVE (Negative); SARS COV2 PCR INHOUSE NEGATIVE (Negative)
--- NOTE | 2023-12-22 23:21 | PC.NURSE ---
pt no answer when called for repeat labs, LWCT
== END 2023-12-22 23:22 | disposition left against medical advice (07) ==
PROVIDERS: Physician Assistant Medical; Emergency Provider Emergency Medicine; PCP Internal Medicine
DX: J06.9 Acute upper respiratory infection, unspecified (principal); R07.9 Chest pain, unspecified; E11.9 Type 2 diabetes mellitus without complications; R05.9 Cough, unspecified; R11.0 Nausea
CPT/HCPCS: 0241U; 36415; 71046; 80053; 83690; 83735; 84484; 85025; 93005; 99283

== ENCOUNTER → 2023-12-22 15:11 | Outpatient (BNV) | payer OTHER, SELFPAY | PROVIDERS: Emergency Provider Emergency Medicine; PCP Internal Medicine; Visit Provider Internal Medicine Cardiovascular Disease | DX: R07.9 Chest pain, unspecified (principal); R00.0 Tachycardia, unspecified | CPT/HCPCS: 93010 ==

== ENCOUNTER 2024-03-21 13:50 | Outpatient (AMB) | payer OTHER, SELFPAY ==
--- NOTE | 2024-03-21 13:57 | MHC.OFFVIS ---
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 Required: No Accompanied by: Self / Same As Patient Allergies nabumetone Allergy (Intermediate, Verified 12/22/23 15:59) Unknown tramadol Allergy (Intermediate, Verified 12/22/23 15:59) headache metformin Adverse Reaction (Intermediate, Verified 12/22/23 15:59) Gastrointestinal Upset/diarrhea Medication List - Last Reconciled 03/21/24 by Junapablo Wyatt MD blood sugar diagnostic (FreeStyle Lite Strips) test once per day lancets (FreeStyle Lancets) test once daily pantoprazole 40 mg PO DAILY 90 days pioglitazone 45 mg PO DAILY 90 days HPI Comments Details: This is a cardiology consultation regarding various symptoms. Patient states that she feels fluttering in the chest intermittently. This lasts for few minutes or so. No specific provoking factors and can happen any time. On one occasion, she had an episode of chest pain as well as back pain. She also had some awaiting. No recurrent chest pain after that. She states that during nighttime, tells her that she has not breathing and to quite. Not clear if she has apneic spells/ROBER. Otherwise, no previously diagnosed coronary disease or any other cardiac concerns. She is morbidly obese. Has diabetes, hypertension, dyslipidemia. [facility], [facility] Medical History (Updated 03/21/24 @ 14:17 by Juanpablo Wyatt MD) Back pain Dyslipidemia Essential hypertension Diabetes mellitus Arthritis Physical exam Surgical History Previous section History of surgery History of foot surgery Family History Father No problems noted. Mother Diabetes Hypertension Maternal Grandmother Diabetes Social History Housing: House Alcohol intake: current Alcohol intake frequency: a few times a month Alcohol type: beer, wine and hard liquor Patient Tobacco Use Status: Never used Tobacco e-Cigarette/Vaping Use: Never Used Second Hand Smoke Exposure: No service: No Current occupational status: employed Current occupation: Work at home - right Handed Current occupational exposures/hazards: No Cognitive needs: No Hearing needs: No Vision needs: Yes Review of Systems Const Denies chills, Denies daytime sleepiness, Denies fatigue, Denies fever(s), Denies lethargy, Denies snoring, Denies stops breathing during sleep, Denies weight gain, Denies weight loss and Denies other Eyes Denies loss of vision Card Denies chest pain, Denies irregular heart rhythm, Denies claudication, Denies leg edema, Denies lightheadedness, Denies palpitations, Denies dyspnea, Denies dyspnea on exertion, Denies orthopnea and Reports other Resp Denies cough, Denies excessive phlegm production, Denies dyspnea, Denies dyspnea on exertion and Denies snoring GI Denies abdominal pain, Denies hematochezia, Denies change in bowel habits, Denies nausea and Denies vomiting Denies dysuria Musc Denies arthralgias, Denies muscle weakness and Denies numbness Skin/Breast Reports as per HPI, Denies nail changes and Denies rash Neuro Denies loss of vision, Denies memory loss and Denies numbness Psych Denies depression and Denies memory loss Endo Denies fatigue and Denies palpitations Nicholas/Lymph Denies easy bruising Physical Exam Vital Signs: Last Vital Signs Pulse 77 03/21/24 13:59 BP 148/96 H 03/21/24 13:59 BMI result Body Mass Index 41.0 Const General: comfortable and no acute distress Orientation/consciousness: patient oriented x3 HEENT Other: Unremarkable Head: Yes normal to inspection Neck Neck: Yes normal visual inspection Chest Chest palpation & inspection: normal inspection of the chest Resp Auscultation: clear to auscultation bilaterally Cardio Palpation: normal PMI Heart sounds: S1 normal heart sound present, S2 normal heart sound present, no gallops, no murmurs and no rubs GI Palpation (GI): Soft to palpation Back/Spine/Pelvis Other: unremarkable Skin General skin exam: no rashes or lesions noted Neuro General: patient oriented x3 Extrem General: Yes normal to inspection Psych Mental Status: mental status grossly normal Assessment & Plan Assessment & Plan (1) Heart palpitations: Code(s): R00.2 - Palpitations Category: Medical (2) Precordial chest pain: Code(s): R07.2 - Precordial pain Category: Medical Plan Constellation of symptoms including racing heart, chest pain, stopping breathing at nighttime and many comorbidities. She has a comprehensive workup from cardiac standpoint. Will proceed with echocardiogram, Holter, coronary CTA and a sleep study. Rationale for these tests discussed and she understands and agrees. Upon completion of these, we can see her back in follow-up. Orders: Orders Basic Metabolic Panel Today R07.2 - Precordial pain CA echo transthoracic complete Today R07.2 - Precordial pain CT Cardiac Coronary Angio Today I25.10 - Atherosclerotic heart disease of [place] coronary artery without angina pectoris, R07.2 - Precordial pain RT home sleep study Today G47.33 - Obstructive sleep apnea (adult) (pediatric), R07.2 - Precordial pain ECG 7 day holter monitor Today R00.2 - Palpitations Coding Level of Care Code New Pt Level 4 (24454) Diagnoses Heart palpitations R00.2 Precordial chest pain R07.2
[2024-03-21 13:59] VITALS: BP 148/96; PULSE 77; BMI 41.0
== END 2024-03-21 14:33 | disposition home or self-care (01) ==
PROVIDERS: PCP Internal Medicine; Visit Provider Internal Medicine
DX: R00.2 Palpitations (principal); R07.2 Precordial pain
CPT/HCPCS: 99204

== ENCOUNTER → 2024-03-21 13:50 | Outpatient (BNVA) | payer OTHER, SELFPAY | PROVIDERS: PCP Internal Medicine; Visit Provider Internal Medicine ==

== ENCOUNTER 2024-05-05 12:16 | Outpatient (REF) | payer OTHER, SELFPAY ==
[2024-05-05 13:05] LABS: Anion Gap 11 (12-20); Blood Urea Nitrogen 14 mg/dL (9-16); Calcium 9.7 mg/dL (8.4-10.2); Carbon Dioxide 29 mmol/L (22-29); Chloride 106 mmol/L (96-108); Estimated Glomerular Filt Rate > 60; Glucose Random 159 mg/dL (60-115); Potassium 4.2 mmol/L (3.3-5.1); Sodium 142 mmol/L (135-145)
== END 2024-05-05 12:17 | disposition home or self-care (01) ==
LOC: HO.LAB 12:16
PROVIDERS: PCP Internal Medicine; Visit Provider Internal Medicine
DX: R07.2 Precordial pain (principal)
CPT/HCPCS: 36415; 80048

== ENCOUNTER → 2024-05-12 13:04 | Outpatient (REF) | payer OTHER, SELFPAY ==
--- NOTE | 2024-05-12 13:08 | CA_ITS ---
Transthoracic Echocardiogram Patient (Last, First, Middle): Nneka Rubalcava M Gender: Female Date of : 1970 Age: 53 Procedure Date: 05/12/2024 Procedure Type: Transthoracic Echocardiogram Location: OP Height: 162. cm Weight: 92.99 kg BSA: 1.97 m2 Heart Rate: 63 bpm BP: 165 / 110 mmHg Steak Sauce Maker: FLAVIO Collins MD: Juanpablo Wyatt MD Nutritional Health Coach: Shan Ohara MD Symptoms: R07.2 - Precordial pain Study Quality: Fair ECG Rhythm: Sinus Conclusions: - 1. Normal LV ejection fraction of 60-65% 2. Normal cardiac valvular Doppler 3. Upper limits of normal ascending aortic size Findings Left Ventricle Normal left ventricular size, thickness, and systolic function. The visually estimated ejection fraction is between 60-65%. Spectral Doppler is indicative of an impaired relaxation filling pattern. Peak GLS is -14.4%, which is moderately reduced. Right Ventricle The right ventricle was not well visualized. Atria The left atrium is normal in size. There is no evidence of interatrial shunt. The right atrium was not well visualized. Aortic Valve The aortic valve was not well visualized. There is no aortic valve stenosis. There is no aortic valve regurgitation. Mitral Valve Likely normal mitral valve structure and function. There is trace mitral valve regurgitation. There is no mitral valve stenosis. Pulmonic Valve The pulmonic valve was not well visualized. Tricuspid Valve The tricuspid valve was not well visualized. Tricuspid regurgitation envelope is inadequate for calculation of right ventricular systolic pressure. Normal right atrial pressure. Great Vessels The aorta was not well visualized. The pulmonary artery was not well visualized. There is no dilatation of the ascending aorta measuring 3.50 cm. Venous The inferior vena cava is normal in size and collapses greater than 50% with inspiration. Pericardium/Pleural The pericardium was not well visualized. Prior Study Comparison No prior study available for comparison. Measurements 2D Linear Measurements IVSd: 0.87 0.6-0.9/0.6-1.0 cm LVIDd: 5.33 3.9-5.3/4.2-5.9 cm LVIDd Index: 2.71 2.4-3.2/2.2-3.1 cm/m2 LVIDs: 3.33 2.0-3.6 cm LVPWd: 1.02 0.7-1.1 cm LA Diam: 3.80 2.7-3.8/3.0-4.0 cm LAIDs Index: 1.93 1.5-2.3 cm/m2 LV Mass: 234.27 67-162/88-224 g LV Mass Index: 118.92 43-95/49-115 g/m2 LVOT Diam: 1.90 3.0+(-)1.3 cm 2D Systolic Function EF 4C: 54.40 >55% EF 2C: 66.90 >55% EF BiP: 61.60 >55% Mitral Valve MV Pk E: 0.78 MV PK A: 0.83 MV Decel Time: 225.00 E/A: 0.90 E'Lateral: 5.98 E'Medial: 5.98 E/E' Med: 13.00 E/E' Lat: 13.00 PHT: 66.00 MVA PHT: 3.33 Decel Fajardo: 3.46 Aortic Valve AoV Pk Mo: 1.37 AoV Mn Mo: 0.94 AoV VTI: 0.30 AoV Pk Grad: 8.00 Aov Mn Grad: 4.00 SHAKIRA Cont.VTI: 2.30 LVOT LVOT Pk Mo: 1.12 LVOT Mn Mo: 0.76 LVOT VTI: 0.24 LVOT Pk Grad: 5.00 LVOT Mn Grad: 3.00 LVOT Diam: 1.90 LVOT Area: 2.84 Diastolic Function MV Pk E: 0.78 MV Pk A: 0.83 E/A: 0.90 E'Medial: 5.98 E/E' Med: 13.00 E' Laterial: 5.98 E/E' Lat: 13.00 Right Ventricle TAPSE (mm): 18.30 TVS' Mo: 9.79 Tricuspid Valve RA Press: 3.00 Great Vessels Aorta Sinus of Valsalva: 3.40 2.0-3.5 cm Ao Asc: 3.50 2.1-3.4 cm Pulmonary Valve PV Pk Mo: 0.81 Peak PV Grad: 3.00 Updated in Other Vendor System with Status of Final Shan Ohara MD electronically signed on 05/12/2024 4:05:20 PM with status of Final
--- NOTE | 2024-05-12 13:08 | HM_ITS ---
* Total monitoring time 6 days and 16 hours. * Underlying rhythm is sinus with an average rate of 80/Min. * Rare supraventricular ectopy. * Rare ventricular ectopy. * No significant pauses or AV blocks. * Patient marker used once in association with run of supraventricular ectopy. MTDD
== END ==
LOC: HO.CARD 13:04
PROVIDERS: PCP Internal Medicine; Visit Provider Internal Medicine
DX: R07.2 Precordial pain (principal); R00.2 Palpitations; G47.33 Obstructive sleep apnea (adult) (pediatric)
CPT/HCPCS: 93242; 93306; 93356

== ENCOUNTER → 2024-05-12 13:08 | Outpatient (BNV) | payer OTHER, SELFPAY | PROVIDERS: PCP Internal Medicine; Visit Provider Internal Medicine Cardiovascular Disease | DX: I47.10 Supraventricular tachycardia, unspecified (principal) | CPT/HCPCS: 93244; 93306; 93356 ==

== ENCOUNTER 2024-06-30 14:44 | Outpatient (AMB) | payer OTHER, SELFPAY ==
--- NOTE | 2024-06-30 14:47 | A.OFFVIS_ITS ---
Vital Signs 06/30/24 14:48 Height 5 ft 4 in Weight 241 lb 6.499 oz BMI 41.4 BP 122/64 Blood Pressure Location Rt brachial Position Sitting Pulse 76 Pulse Source Doppler Pulse Oximetry (%) 75 L Oxygen Delivery Method Room Air Intake Visit Reasons: sleep apnea Allergies tramadol Allergy (Intermediate, Verified 06/30/24 14:51) headache metformin Adverse Reaction (Intermediate, Verified 06/30/24 14:51) Gastrointestinal Upset/diarrhea HPI HPI sleep apnea: Details: 53-year-old lady with recent diagnosis of mild obstructive sleep apnea referred for pulmonary follow-up. Patient states that she experience unrestful sleep and daytime sleepiness. She is interested in CPAP therapy. [facility] [place] Medical History (Updated 06/30/24 @ 16:15 by Fan Hi MD) Mild sleep apnea Back pain Dyslipidemia Essential hypertension Diabetes mellitus Arthritis Physical exam Surgical History Previous section History of surgery History of foot surgery Family History Father No problems noted. Mother Diabetes Hypertension Maternal Grandmother Diabetes Social History Housing: House Alcohol intake: current Alcohol intake frequency: a few times a month Alcohol type: beer, wine and hard liquor Patient Tobacco Use Status: Never used Tobacco e-Cigarette/Vaping Use: Never Used Second Hand Smoke Exposure: No service: No Current occupational status: employed Current occupation: Work at home - right Handed Current occupational exposures/hazards: No Cognitive needs: No Hearing needs: No Vision needs: Yes Review of Systems Const Reports daytime sleepiness, Denies excessive sweating, Denies fatigue, Denies fever(s), Reports lethargy, Denies malaise, Denies night sweats, Denies snoring and Denies weight loss Eyes Denies blurry vision and Denies itchy eyes ENT Denies nasal congestion, Denies post nasal drip, Denies sinus pain, Denies sinus pressure and Denies other ( Thrush) Card Denies chest pain, Denies pedal edema, Denies dyspnea, Denies orthopnea and Denies paroxysmal nocturnal dyspnea Resp Denies cough, Denies hemoptysis, Denies excessive phlegm production, Denies dyspnea, Denies snoring and Denies wheezing GI Denies abdominal pain and Denies heartburn Musc Denies myalgias, Denies arthralgias and Denies joint swelling Skin/Breast Denies rash Neuro Denies memory loss and Denies seizure-like activity Psych Denies abnormal sleep pattern, Denies anxiety and Denies memory loss Endo Denies excessive sweating, Denies fatigue and Denies heat intolerance Nicholas/Lymph Denies easy bruising Aller/Immun Denies itchy eyes, Denies seasonal rhinorrhea and Denies wheezing Physical Exam Vital Signs: Last Vital Signs Pulse 76 06/30/24 14:48 BP 122/64 06/30/24 14:48 Pulse Ox 75 L 06/30/24 14:48 Oxygen Delivery Method Room Air 06/30/24 14:48 BMI result Body Mass Index 41.4 Const General: no acute distress and alert Nutritional Appearance: obese Orientation/consciousness: Other orientation findings ( oriented) HEENT Head: Yes atraumatic Eyes General: appearance normal, both eyes and all related structures Sclerae: sclerae normal EOM: EOMs intact bilaterally Neck Neck: Yes supple Lymphatic: no lymphadenopathy noted Resp Effort & Inspection: normal respiratory effort and no use of accessory muscles Auscultation: clear to auscultation bilaterally Cardio Rate: regular rate Rhythm: regular rhythm Heart sounds: no gallops, no murmurs and no rubs Skin General skin exam: other ( warm) Extrem General: No clubbing, No cyanosis and No edema Assessment & Plan Assessment & Plan (1) Morbid obesity with BMI of 40.0-44.9, adult: Code(s): E66.01 - Morbid (severe) obesity due to excess calories; Z68.41 - Body mass index [BMI] 40.0-44.9, adult Category: Medical (2) ROBER (obstructive sleep apnea): Code(s): G47.33 - Obstructive sleep apnea (adult) (pediatric) Category: Medical (3) Essential hypertension: Code(s): I10 - Essential (primary) hypertension Category: Medical Plan Sleep study results reviewed, underlying mild obstructive sleep apnea with AHI of 6. Comorbidities include morbid obesity with BMI above 40 and hypertension. Will start on APAP of 6-16 cm of water. Coding Level of Care Code New Pt Level 3 (78531) Diagnoses Morbid obesity with BMI of 40.0-44.9, adult E66.01; Z68.41 ROBER (obstructive sleep apnea) G47.33 Essential hypertension I10
[2024-06-30 14:48] VITALS: BP 122/64; PULSE 76; O2SAT 75; BMI 41.4
== END 2024-06-30 15:06 | disposition home or self-care (01) ==
PROVIDERS: PCP Internal Medicine; Visit Provider Internal Medicine Pulmonary Disease
DX: E66.01 Morbid (severe) obesity due to excess calories (principal); Z68.41 Body mass index [BMI] 40.0-44.9, adult; G47.33 Obstructive sleep apnea (adult) (pediatric); I10 Essential (primary) hypertension
CPT/HCPCS: 99203

== ENCOUNTER → 2024-06-30 14:44 | Outpatient (BNVA) | payer OTHER, SELFPAY | PROVIDERS: PCP Internal Medicine; Visit Provider Internal Medicine Pulmonary Disease ==

== ENCOUNTER 2025-02-27 12:14 | Outpatient (REF) | payer OTHER, SELFPAY ==
--- NOTE | ~2025-02-27 | XR_ITS ---
EXAMINATION: XR CHEST CLINICAL INFORMATION: R05.9 - Cough, unspecified COMPARISON: 12/22/2023. TECHNIQUE: 2 views of the chest were obtained. FINDINGS: The cardiac, hilar, and mediastinal contours are normal. The lungs are clear bilaterally. There is no pneumothorax or pleural effusion. There is no focal osseous or soft tissue abnormality. XR/XR chest 2V IMPRESSION: No active pulmonary disease. Electronically signed by: Dioni Casper MD 02/27/2025 02:10 PM EDT
== END 2025-02-27 12:15 | disposition home or self-care (01) ==
LOC: HO.HMGCX 12:14
PROVIDERS: PCP Internal Medicine; Visit Provider Physician Assistant
DX: R05.9 Cough, unspecified (principal)
CPT/HCPCS: 71046

== ENCOUNTER 2025-02-27 12:14 | Outpatient (AMB) | payer OTHER, SELFPAY ==
[2025-02-27 12:14] VITALS: BP 130/90; PULSE 88; TEMP 36.3; O2SAT 94; BMI 40.6
--- NOTE | 2025-02-27 12:14 | AM.OFFWIN_ITS ---
Intake Vital Signs 02/27/25 12:14 Height 5 ft 4 in Weight 236 lb 8 oz BMI 40.6 BP 130/90 H Blood Pressure Location Lt brachial Position Sitting Pulse 88 Pulse Source Pulse Oximeter Temp 97.4 F Temp Source Oral Pulse Oximetry (%) 94 Oxygen Delivery Method Room Air Intake Visit Reasons: EP Chest congestion, wheezing Intake Note: Pt presents to the office today for c/o chest congestion,wheezing,cough, and bilateral ear pain x1 week. Patient Tobacco Use Status: Never used Tobacco Allergies tramadol Allergy (Intermediate, Verified 02/27/25 12:18) headache metformin Adverse Reaction (Intermediate, Verified 02/27/25 12:18) Gastrointestinal Upset/diarrhea HPI HPI Comments History of Present Illness Details History - The patient is a 54-year-old female pr esenting with cough and congestion. - Reports scratchy throat and ear pain b eginning a week ago, followed by facial pain, indicating sinusitis. - Experiences wheezing without a history of asthma or COPD, denies smoking. - History of bronchitis with current sym ptoms similar to past episodes. - Denies fever, reports difficulty sleep ing due to coughing and wheezing. - Using Mucinex with some relief, but sy mptoms worsened, including loss of voice and increased wheezing. - History of diabetes mellitus and acid reflux, potentially contributing to respiratory symptoms. Physical Exam General: Cooperative, healthy appearing, comfortable and no acute distress Orientation/consciousness: Patient oriented x3 Limitations: No limitations Head: Normal to inspection Ears: Hearing grossly normal bilaterally, external ears normal and TM's with a small amt of clear fluid bilaterally Nose: Normal external nose present, Normal nares present and No nasal discharge present Face and sinus: Normal facial exam and Yes sinuses nontender, previously tender Mouth: Normal oral and palatal mucosa present and moist mucous membranes Throat: Yes tonsils normal, Yes uvula midline. Posterior oropharynx erythema, no exudates Eyes: Appearance normal, both eyes and all related structures Neck: Normal visual inspection, full ROM Respiratory: insp/exp wheezes throughout. Normal respiratory effort, able to speak in complete sentences, Actively coughing, no respiratory distress, not tachypneic, no tripod positioning and no use of accessory muscles Cardiovascular: Regular rate and rhythm. Normal S1 and S2 Skin: No rashes or lesions noted Neuro: Patient oriented x3 Extremities: Normal to inspection and Yes no clubbing, cyanosis or edema [facility] Medical History Mild sleep apnea Back pain Dyslipidemia Essential hypertension Diabetes mellitus Arthritis Physical exam Surgical History Previous section History of surgery History of foot surgery Family History Father No problems noted. Mother Diabetes Hypertension Maternal Grandmother Diabetes Social History Housing: House Alcohol intake: current Alcohol intake frequency: a few times a month Alcohol type: beer, wine and hard liquor Patient Tobacco Use Status: Never used Tobacco e-Cigarette/Vaping Use: Never Used Second Hand Smoke Exposure: No service: No Current occupational status: employed Current occupation: Work at home - right Handed Current occupational exposures/hazards: No Cognitive needs: No Hearing needs: No Vision needs: Yes Review of Systems Const All systems reviewed & are unremarkable except as noted in HPI and below Physical Exam Vital Signs: Last Vital Signs Temp 97.4 F 02/27/25 12:14 Pulse 88 02/27/25 12:14 BP 130/90 H 02/27/25 12:14 Pulse Ox 94 02/27/25 12:14 Oxygen Delivery Method Room Air 02/27/25 12:14 BMI result Body Mass Index 40.6 Assessment & Plan Assessment & Plan (1) Lower respiratory infection (e.g., bronchitis, pneumonia, pneumonitis, pulmonitis): Code(s): J22 - Unspecified acute lower respiratory infection Plan: - O2 94%, otherwise VSS, pt well appearing and PE remarkable for wheezing. - Prescribe prednisone to reduce inflammation and improve breathing, with a smaller dose due to diabetes. - Prescribe an inhaler to manage wheezing and improve lung function. Explained how and when to use it. - Order a chest x-ray to rule out pneumonia, given the patient's oxygen saturation of 94%. - Prescribe tessalon pearls to suppress cough and aid sleep. - Continue Mucinex for mucus relief. - Monitor for potential pneumonia and adjust treatment if necessary. Patient was informed and verbally consented to the use of an ambient scribe for clinic note documentation during this visit Orders: Orders XR chest 2V Today R05.9 - Cough, unspecified Medications: New prednisone 20 mg PO QAM 5 tabs 0RF benzonatate 200 mg PO BEDTIME PRN 10 caps 0RF cough albuterol sulfate 90 mcg/actuation 2 puffs inhalation Q6H PRN 8.5 grams 0RF shortness of breath or wheezing or cough Coding Level of Care Code Est Pt Level 4 (84957) Diagnoses Lower respiratory infection (e.g., bronchitis, pneumonia, pneumonitis, pulmonitis) J22
--- OUTSIDE RECORDS SUMMARY | 2025-02-27 13:37 | XMS_ITS | Clinical Summary ---
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 Role Phone Christiano Haider MD Primary Care Provider [phone] Surgical History Surgery Date Site/Laterality Comments SECTION 1991, 1995 PROCEDURE: SD DELIVERY ONLY Family History Medical History Relation Name Comments Diabetes Maternal Grandmother Diabetes Mother Breast cancer Neg Hx Relation Name Status Comments Brother Alive Daughter 1 Alive Daughter 2 Alive Father Alive Maternal Grandfather Maternal Grandmother Mother Alive Paternal Grandfather Paternal Grandmother Social History Tobacco Use Types Packs/Day Years Used Date Smoking Tobacco: Never Smokeless Tobacco: Never Alcohol Use Standard Drinks/Week Comments Yes 0 (1 standard drink = 0.6 oz pur e alcohol) Comments Unknown Sex and Gender Information Value Date Recorded Sex Assigned at Not on file Legal Sex Female 5:13 PM EDT Gender Identity Not on file Sexual Orientation Not on file Obstetrics History Para Term AB IAB SAB Ectopic Multiple Livin g Live Births 2 2 2 2 Date Outcome GA Total Labor Labor/2nd/3rd Weight Sex Type Anes PTL Karyn A1 A5 Name Clin Term Term Plan of Treatment Health Maintenance Due Date Last Done Comments Hepatitis B Vaccines (1 of 3 - 19+ 3-dose series) 11/19/1987 Pneumococcal Vaccine: 50+ Years (1 of 1 - PCV) 2018 Zoster Vaccines (1 of 2) 2018 Colorectal Cancer Screening: Colonoscopy 07/15/2022 Depression Screening 07/15/2022 HIV Screening 07/15/2022 Hepatitis C Screening 07/15/2022 Social Influencers of Health Screening 07/15/2022 Cervical Cancer Screening: Pap Smear 11/13/2023 11/12/2020 COVID-19 Vaccine ( season) 2024 DTaP,Tdap,and Td Vaccines (2 - Td or Tdap) 01/05/2025 01/05/2015 Influenza Vaccine (Season Ended) 2025 Breast Cancer Screening 07/20/2026 07/20/20, 07/16/2023, 07/14/2022, Additional history exists HIB Vaccines Aged Out No longer eligi ble based on patient's age to complete this topic HPV Vaccines Aged Out No longer eligi ble based on patient's age to complete this topic Hepatitis A Vaccines Aged Out No long er eligible based on patient's age to complete this topic IPV Vaccines Aged Out No longer eligi ble based on patient's age to complete this topic MMR Vaccines Aged Out No longer eligi ble based on patient's age to complete this topic Meningococcal ACWY Vaccine Aged Out N o longer eligible based on patient's age to complete this topic Meningococcal B Vaccine Aged Out No l onger eligible based on patient's age to complete this topic Pneumococcal Vaccine: Pediatrics (0 to 5 Years) and At-Risk Patients (6 to 64 Years) Aged Out No longer eligible based on patient's age to complete this topic RSV Immunization Patients Under 20 months Aged Out No longer eligible based on patient's age to complete this topic Varicella Vaccines Aged Out No longer eligible based on patient's age to complete this topic Procedures Procedure Name Priority Date/Time Associated Diagnosis Comments MG MAMMO DIGITAL SCREENING W CLAUDE BILAT Routine 07/20/2024 2:54 PM EST Encounter for screening mammogram for breast cancer PAP SMEAR Routine 11/12/2020 from Last 3 Months or Most Recently Relevant to Health Maintenance Results * MG Mammo Digital Screening w Claude bilat (07/20/2024 2:54 PM EST) Anatomical Region Laterality Modality Breast Bilateral Mammography 07/21/2024 12:0 0 PM EST Impressions 07/21/2024 12:03 PM EST No mammographic evidence for malignancy. BI-RADS CATEGORY: 1 - NEGATIVE RECOMMENDATION: Screening bilateral mammogram is recommended in 1 year. Screening bilateral mammogram is recommended in 1 year. -------- FINAL REPORT -------- Dictated By: Simi Contreras Dictated Date: 07/21/2024 12:00 ET Assigned Physician: Simi Contreras Reviewed and Electronically Signed By: Simi Contreras Signed Date: 07/21/2024 12:03 ET Workstation ID: [id number] Transcribed By: Self Edit Transcribed Date: 07/21/2024 12:00 ET Narrative 07/21/2024 12:03 PM EST EXAMINATION TYPE: MG MAMMO DIGITAL SCREENING W CLAUDE BILAT DATE OF EXAM ORDERED: 07/20/2024 2:43 PM COMPARISON: Prior mammograms, latest from 07/16/2023. REASON FOR STUDY: ??Breast cancer screen, avg risk, asymptomatic (Age => 40y) TECHNIQUE: Bilateral mediolateral oblique and craniocaudal views ??were obtained digitally with 3-D mammogram (digital breast tomosynthesis) with CAD. Computer- aided detection was utilized in evaluation of this examination (SecondLook; iCAD). FINDINGS: The breast tissue distribution pattern is unchanged. There is no suspicious mass, suspicious calcifications or suspicious architectural distortion. BREAST DENSITY: B - There are scattered areas of fibroglandular density. Procedure Note Simi Contreras MD - 07/21/2024 EXAMINATION TYPE: MG MAMMO DIGITAL SCREENING W CLAUDE BILAT DATE OF EXAM ORDERED: 07/20/2024 2:43 PM COMPARISON: Prior mammograms, latest from 07/16/2023. REASON FOR STUDY: Breast cancer screen, avg risk, asymptomatic (Age =>40y) TECHNIQUE: Bilateral mediolateral oblique and craniocaudal views wereobtained digitally with 3-D mammogram (digital breast tomosynthesis) withCAD. Computer- aided detection was utilized in evaluation of thisexamination (SecondLook; iCAD). FINDINGS: The breast tissue distribution pattern is unchanged. There is nosuspicious mass, suspicious calcifications or suspicious architecturaldistortion. BREAST DENSITY: B - There are scattered areas of fibroglandular density. IMPRESSION: No mammographic evidence for malignancy. BI-RADS CATEGORY: 1 - NEGATIVE RECOMMENDATION: Screening bilateral mammogram is recommended in 1 year. Screeningbilateral mammogram is recommended in 1 year. -------- FINAL REPORT -------- Dictated By: Simi Contreras Dictated Date: 07/21/2024 12:00 ET Assigned Physician: Simi Contreras Reviewed and Electronically Signed By: Simi Contreras Signed Date: 07/21/2024 12:03 ET Workstation ID: [id number] Transcribed By: Self Edit Transcribed Date: 07/21/2024 12:00 ET us Christiano Haider MD IMG BI PROCEDURES Final Result * Pap smear (11/12/2020) 11/12/2020 Narrative HISTORICAL TESTING LAB RESULTING AGENCY - 11/16/2020 12:40 PM EST [id number] THINPREP PAP, IMAGED: NEGATIVE FOR SQUAMOUS INTRAEPITHELIAL LESION AND MALIGNANCY . BRIGETTE CUETO(ASCP) (CASE ELECTRONICALLY SIGNED 11 16 2020) RESULT OF APTIMA HIGH RISK HPV ASSAY: HIGH RISK HPV: ??NEGATIVE (SEROTYPES 16,18,31,33,35,39,45,51,52,56,58,59,66,68) COMPLETED ON 2020-11-14 ADEQUACY: SATISFACTORY ENDOCERVICAL/TRANSFORMATION ZONE COMPONENT PRESENT. SOURCE: THINPREP PAP HPV ANY DX: ??REFLEX 16 AND 18, CERVICAL, IMAGED CLINICAL INFORMATION: HPV ANY DIAGNOSIS. 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
== END 2025-02-27 13:13 | disposition home or self-care (01) ==
PROVIDERS: PCP Internal Medicine; Visit Provider Physician Assistant
DX: J22 Unspecified acute lower respiratory infection (principal)

== ENCOUNTER → 2025-02-27 13:12 | Outpatient (BNV) | payer OTHER, SELFPAY | PROVIDERS: PCP Internal Medicine; Visit Provider Radiology Diagnostic Radiology | DX: R05.9 Cough, unspecified (principal) | CPT/HCPCS: 71046 ==

== ENCOUNTER 2025-03-08 11:49 | Outpatient (AMB) | payer OTHER, SELFPAY ==
[2025-03-08 11:55] VITALS: BP 175/104; PULSE 90; TEMP 36.8; O2SAT 94; BMI 40.7
--- NOTE | 2025-03-08 11:55 | AM.OFFWIN_ITS ---
Intake Vital Signs 03/08/25 11:55 Height 5 ft 4 in Weight 237 lb BMI 40.7 BP 175/104 H Blood Pressure Location Rt brachial Position Sitting Pulse 90 Pulse Source Pulse Oximeter Temp 98.3 F Temp Source Oral Pulse Oximetry (%) 94 Oxygen Delivery Method Room Air Intake Visit Reasons: EP Rib pain from cough, still not better from last Patient Tobacco Use Status: Never used Tobacco Allergies tramadol Allergy (Intermediate, Verified 03/08/25 11:58) headache metformin Adverse Reaction (Intermediate, Verified 03/08/25 11:58) Gastrointestinal Upset/diarrhea Do you need a note to return to daycare/school/sports/work: Yes HPI HPI Comments History of Present Illness Details History - The patient is a 54-year-old female pr esenting with persistent cough and now rib pain. - She has been having a dry cough for e past 14 days. - She was seen here last week and had a CXR which was negative. - Diagnosed with bronchitis or respirato ry infection last week, treated with prednisone, an inhaler, and cough drops. - Dry cough persists for 14 days, with n o significant sputum production. - She states that despite taking her med ications, she continues to have the cough. - She felt a pop in the left side of t he chest when she was coughing. - Recent chest pain described constant s harp pain, likely due to muscle strain from coughing. - She has pain with coughing and taking a deep breath. - No fever noted during this illness. - She denies SOB, wheezing, abd pain, n/ v/d. Physical Exam General: Cooperative, healthy appearing, comfortable and no acute distress Head: Normal to inspection Ears: Hearing grossly normal bilaterally, external ears normal and TM's normal bilaterally Nose: Normal external nose present, normal nares present, and no nasal discharge present. Face and sinus: Sinuses nontender to palpation. Mouth: Normal oral and palatal mucosa present and moist mucous membranes noted. Throat: Tonsils normal. Uvula is midline. Posterior oropharynx with erythema and no exudates. Neck: Normal visual inspection, full ROM. No lymphadenopathy noted. Respiratory: Clear to auscultation bilaterally. Normal respiratory effort, able to speak in complete sentences. No respiratory distress, not tachypneic, no tripod positioning and no use of accessory muscles. Cardiovascular: Regular rate and rhythm. Normal S1 and S2 Skin: No rashes or lesions noted Musculoskeletal: TTP of the left lateral and anterior chest wall. No crepitus noted. Patient was informed and verbally consented to the use of an ambient scribe for clinic note documentation during this visit [facility] Medical History Mild sleep apnea Back pain Dyslipidemia Essential hypertension Diabetes mellitus Arthritis Physical exam Surgical History Previous section History of surgery History of foot surgery Family History Father No problems noted. Mother Diabetes Hypertension Maternal Grandmother Diabetes Social History Housing: House Alcohol intake: current Alcohol intake frequency: a few times a month Alcohol type: beer, wine and hard liquor Patient Tobacco Use Status: Never used Tobacco e-Cigarette/Vaping Use: Never Used Second Hand Smoke Exposure: No service: No Current occupational status: employed Current occupation: Work at home - right Handed Current occupational exposures/hazards: No Cognitive needs: No Hearing needs: No Vision needs: Yes Review of Systems Const All systems reviewed & are unremarkable except as noted in HPI and below Physical Exam Vital Signs: Last Vital Signs Temp 98.3 F 03/08/25 11:55 Pulse 90 03/08/25 11:55 Pulse Ox 94 03/08/25 11:55 Oxygen Delivery Method Room Air 03/08/25 11:55 BMI result Body Mass Index 40.7 Results Reviewed Results Reviewed: reviewed her CXR Assessment & Plan Assessment & Plan (1) Cough: Code(s): R05.9 - Cough, unspecified Qualifiers: Cough type: acute Qualified Code(s): R05.1 - Acute cough (2) Rib pain on left side: Code(s): R07.81 - Pleurodynia Plan Most likely URI vs bronchitis vs CAP Most likely costochondritis Plan - VSS, pt well appearing - Repeat chest x-ray to assess current status. - Consider antibiotics if x-ray findings indicate necessity due to prolonged symptoms. - Prescribe a muscle relaxer to alleviate chest pain associated with coughing. - Continue with tessalon perles and albuterol inhaler - Tylenol or Motrin as needed - follow up with PCP Orders: Orders XR chest 2V Today R05.9 - Cough, unspecified Medications: New benzonatate 100 mg PO bid-tid PRN 21 caps 0RF Cough 7 days doxycycline hyclate 100 mg PO BID 14 tabs 0RF 7 days cyclobenzaprine 5 mg PO tid PRN 21 tabs 0RF Muscle Spasm 7 days Coding Level of Care Code Est Pt Level 4 (96093) Diagnoses Acute cough R05.1 Cough type: acute Rib pain on left side R07.81
== END 2025-03-08 13:46 | disposition home or self-care (01) ==
PROVIDERS: PCP Internal Medicine; Visit Provider Physician Assistant Medical
DX: R05.1 Acute cough (principal); R07.81 Pleurodynia

== ENCOUNTER 2025-03-08 11:49 | Outpatient (REF) | payer OTHER, SELFPAY ==
--- NOTE | ~2025-03-08 | XR_ITS ---
EXAMINATION: XR CHEST 2 VIEWS HISTORY: R05.9 - Cough, unspecified COMPARISON: Aeration is made with the prior examination dated 1624. FINDINGS: PA and lateral views of the chest are submitted. The lungs are expanded and clear. There is no pleural effusion, pneumothorax, or pulmonary vascular congestion. The heart is normal in size. The bones are intact. XR/XR chest 2V IMPRESSION: No acute cardiopulmonary abnormality. Electronically signed by: Trace Hall MD 03/08/2025 12:48 PM EDT
== END 2025-03-08 11:50 | disposition home or self-care (01) ==
LOC: HO.HMGCX 11:49
PROVIDERS: PCP Internal Medicine; Visit Provider Physician Assistant Medical
DX: R05.1 Acute cough (principal); R07.81 Pleurodynia
CPT/HCPCS: 71046

== ENCOUNTER → 2025-03-08 12:36 | Outpatient (BNV) | payer OTHER, SELFPAY | PROVIDERS: PCP Internal Medicine; Visit Provider Radiology Diagnostic Radiology | DX: R05.9 Cough, unspecified (principal) | CPT/HCPCS: 71046 ==